=== PATIENT | male | born 1965 | race Two or more races ===

== ENCOUNTER 2016-11-11 19:13 | Emergency (ER) | payer OTHER ==
[~2016-11-11] VITALS: Ht 165.1 cm; Wt 104.3 kg
[2016-11-11 19:21] VITALS: BP 167/105
== END 2016-11-11 21:33 | disposition home or self-care (01) ==
LOC: ER 19:17
DX: M77.9 Enthesopathy, unspecified (principal); M79.641 Pain in right hand
CPT/HCPCS: 73130

== ENCOUNTER 2020-12-23 10:36 | Inpatient (IN) | payer MEDICAID, OTHER ==
[~2020-12-23] VITALS: Ht 157.5 cm; Wt 69.0 kg
[2020-12-23] MEDS ORDERED: ONDANSETRON HCL 4 MG/2 ML VIAL IV ONE (11:30)
[2020-12-23] MEDS ORDERED: HYDROmorphone HCL 2 MG/ML VL IV ONE (11:30)
[2020-12-23 11:56] LABS: Basophils # (auto) 0 10 ^3/uL (0-0.2); Basophils % (auto) 0.2 % (0.0-2.0); Eosinophils # (auto) 0.3 10 ^3/uL (0-0.8); Eosinophils % (auto) 3.2 % (0.0-7.0); Hematocrit 43.6 % (41.0-53.0); Hemoglobin 15.1 g/dL (13.5-17.5); Lymphocytes # (auto) 0.8 10 ^3/uL (0.4-5.4); Lymphocytes % (auto) 7.8 % (10.0-50.0); Mean Corpuscular Hemoglobin 30.9 pg (28.0-32.0); Mean Corpuscular Hgb Conc. 34.5 g/dL (32.0-36.0); Mean Corpuscular Volume 89.5 fL (80.0-100.0); Monocytes # (auto) 0.5 10 ^3/uL (0-1.3); Monocytes % (auto) 4.7 % (0.0-12.0); Neutrophils # (auto) 8.1 10 ^3/uL (1.6-8.6); Neutrophils % (auto) 84.1 % (37.0-80.0); Nucleated Red Blood Cells % 0.1 %; Platelet Count (auto) 246 10^3/uL (140-450); Red Blood Cells 4.87 10^6/uL (4.5-5.90); Red Cell Distribution Width 13.8 % (11.8-14.3); White Blood Cell 9.7 10^3/uL (4.4-10.8)
[2020-12-23] MEDS ORDERED: ceFAZolin 1GM/50ML 50 ML IV ONE (12:15)
[2020-12-23 12:19] LABS: Albumin 3.8 g/dL (3.4-5.0); Calcium 8.8 mg/dL (8.5-10.1); Potassium 3.4 mmol/L (3.5-5.1)
[2020-12-23 12:24] LABS: BUN/Creatinine Ratio 14.3; Bilirubin, Total 1.1 mg/dL (0.2-1.0); Total Protein 7.8 g/dL (6.4-8.2)
[2020-12-23 12:26] LABS: Partial Thromboplastin Time 24.8 sec (23.0-31.2)
[2020-12-23 12:40] LABS: Urine WBC None Seen /hpf (0 - 3)
[2020-12-23 13:03] LABS: Urine Bacteria NONE SEEN /hpf (None Seen); Urine Blood Negative /uL (Negative); Urine Mucus FEW (None Seen); Urine Specific Gravity 1.016 (1.001-1.035)
[2020-12-23] MEDS ORDERED: ACETAMINOPHEN 500 MG TAB PO PRN (14:00)
[2020-12-23] MEDS ORDERED: MORPHINE SULF INJ 2 MG/ML SYRINGE 1ML IV PRN (14:00)
[2020-12-23] MEDS ORDERED: DOCUSATE CALCIUM 240 MG CAP PO PRN (14:00)
[2020-12-23] MEDS ORDERED: SODIUM CHLORIDE 0.9% 2,000 ML IV ONE (14:00)
[2020-12-23] MEDS ORDERED: TETANUS-DIPTH-ACEL PERTUSSIS 0.5ML SYR Tdap IM ONE (14:00)
[2020-12-23] MEDS ORDERED: NITROGLYCERIN 0.4 MG SL TAB SL PRN (14:00)
[2020-12-23] MEDS: ONDANSETRON HCL 4 MG/2 ML VIAL IV PRN (14:47)
[2020-12-23] MEDS: HYDROmorphone HCL 2 MG/ML VL IV PRN ×2 (14:47→19:08)
[2020-12-23] MEDS: POTASSIUM CHL 20MEQ/100ML 100 ML IV SCH ×2 (15:11→17:44)
[2020-12-23] MEDS: SODIUM CHLORIDE 0.9% 1,000 ML IV SCH (16:10)
[2020-12-23] MEDS: ceFAZolin 1GM/50ML 50 ML IV SCH (17:53)
[2020-12-23 18:27] VITALS: BP 149/93
[2020-12-23] MEDS ORDERED: PRA1C PO (18:53)
[2020-12-23 22:00] VITALS: BP 138/93
[2020-12-24] VITALS (9 sets, daily range): BP systolic 122–168; BP diastolic 71–107
[2020-12-24] MEDS: ceFAZolin 1GM/50ML 50 ML IV SCH ×5 (00:04→23:07)
[2020-12-24] MEDS: HYDROmorphone HCL 2 MG/ML VL IV PRN ×4 (00:05→21:30)
[2020-12-24] MEDS: ONDANSETRON HCL 4 MG/2 ML VIAL IV PRN (00:30)
[2020-12-24] MEDS: SODIUM CHLORIDE 0.9% 1,000 ML IV SCH ×2 (05:28→19:01)
[2020-12-24] MEDS ORDERED: hydrALAZINE HCL 20 MG/ML VL IV ONE (06:15)
[2020-12-24] MEDS ORDERED: ceFAZolin 1GM VL ONE ×2 (08:10→09:06)
[2020-12-24] MEDS ORDERED: ROPIVACAINE 0.5% (5MG/ML) 20ML AMPULE IJ ONE (08:10)
[2020-12-24] MEDS ORDERED: NEOMYCIN-BACITRACIN-POLYM 15GM TOP OINT TOP ONE (08:10)
[2020-12-24] MEDS ORDERED: ceFAZolin 1GM/50ML 50 ML IV ONE (08:12)
[2020-12-24] MEDS ORDERED: fentaNYL CITRATE 100 MCG/2 ML VL ONE (08:14)
[2020-12-24] MEDS ORDERED: MIDAZOLAM HCL 1MG/1ML-2 ML VIAL ONE (08:14)
[2020-12-24] MEDS ORDERED: MORPHINE SULF(PF) 0.5MG/ML 10ML VIAL ONE (08:14)
[2020-12-24] MEDS ORDERED: KETOROLAC TROMETH 30 MG/ML 1ML VIAL ONE (08:14)
[2020-12-24] MEDS ORDERED: GLYCOPYRROLATE 0.2 MG/ML 1ML VIAL ONE (08:14)
[2020-12-24] MEDS ORDERED: ONDANSETRON HCL 4 MG/2 ML VIAL ONE (08:14)
[2020-12-24] MEDS ORDERED: KETAMINE HCL 10 ML ONE (08:14)
[2020-12-24] MEDS ORDERED: PROPOFOL 10 MG/ML 20 ML IV ONE (08:14)
[2020-12-24 08:16] LABS: Basophils # (auto) 0 10 ^3/uL (0-0.2); Basophils % (auto) 0.1 % (0.0-2.0); Eosinophils # (auto) 1.1 10 ^3/uL (0-0.8); Hematocrit 43.3 % (41.0-53.0); Lymphocytes # (auto) 2.1 10 ^3/uL (0.4-5.4); Lymphocytes % (auto) 22.3 % (10.0-50.0); Mean Corpuscular Hemoglobin 31.5 pg (28.0-32.0); Mean Corpuscular Hgb Conc. 34.6 g/dL (32.0-36.0); Mean Corpuscular Volume 90.8 fL (80.0-100.0); Monocytes % (auto) 11.2 % (0.0-12.0); Neutrophils % (auto) 54.4 % (37.0-80.0); Platelet Count (auto) 242 10^3/uL (140-450); Red Blood Cells 4.76 10^6/uL (4.5-5.90); Red Cell Distribution Width 13.9 % (11.8-14.3); White Blood Cell 9.2 10^3/uL (4.4-10.8)
[2020-12-24 08:23] LABS: Calcium 8.4 mg/dL (8.5-10.1); Potassium 3.8 mmol/L (3.5-5.1)
[2020-12-24] MEDS ORDERED: TETRACAINE 1% INJ 2 ML VIAL IJ ONE (08:23)
[2020-12-24 08:27] LABS: Albumin 3.6 g/dL (3.4-5.0); BUN/Creatinine Ratio 15.6
[2020-12-24 08:29] LABS: Bilirubin, Total 1.1 mg/dL (0.2-1.0); Total Protein 7.7 g/dL (6.4-8.2)
[2020-12-24] MEDS: ENOXAPARIN SOD 40 MG/0.4 ML SYRINGE SC SCH (09:24)
[2020-12-24] MEDS ORDERED: ONDANSETRON HCL 4 MG/2 ML VIAL IV PRN (11:15)
[2020-12-24] MEDS: PANTOPRAZOLE 40 MG TAB PO SCH (12:50)
[2020-12-24] MEDS: HYDROcodone-ACET 5/325MG TAB PO PRN (23:08)
[2020-12-24] MEDS: LABETALOL HCL 5 MG/ML 4ML SYRINGE IV PRN (23:19)
[2020-12-25] VITALS (18 sets, daily range): BP systolic 137–163; BP diastolic 50–99
[2020-12-25] MEDS: LORazepam 0.5 MG TAB PO PRN (00:52)
[2020-12-25] MEDS: HYDROmorphone HCL 2 MG/ML VL IV PRN ×6 (01:14→23:17)
[2020-12-25] MEDS: ONDANSETRON HCL 4 MG/2 ML VIAL IV PRN (02:06)
[2020-12-25] MEDS: LABETALOL HCL 5 MG/ML 4ML SYRINGE IV PRN (03:50)
[2020-12-25] MEDS: ceFAZolin 1GM/50ML 50 ML IV SCH ×4 (06:03→23:16)
[2020-12-25 06:55] LABS: Basophils # (auto) 0 10 ^3/uL (0-0.2); Basophils % (auto) 0.2 % (0.0-2.0); Eosinophils # (auto) 0.2 10 ^3/uL (0-0.8); Hematocrit 39.2 % (41.0-53.0); Hemoglobin 13.8 g/dL (13.5-17.5); Lymphocytes % (auto) 9.7 % (10.0-50.0); Mean Corpuscular Hgb Conc. 35.2 g/dL (32.0-36.0); Monocytes # (auto) 1.3 10 ^3/uL (0-1.3); Neutrophils # (auto) 7.5 10 ^3/uL (1.6-8.6); Neutrophils % (auto) 75.1 % (37.0-80.0); Platelet Count (auto) 202 10^3/uL (140-450); Red Cell Distribution Width 13.4 % (11.8-14.3)
[2020-12-25 07:10] LABS: BUN/Creatinine Ratio 13.6; Calcium 8.7 mg/dL (8.5-10.1); Potassium 3.6 mmol/L (3.5-5.1)
[2020-12-25] MEDS: SODIUM CHLORIDE 0.9% 1,000 ML IV SCH ×2 (08:18→21:32)
[2020-12-25] MEDS: ENOXAPARIN SOD 40 MG/0.4 ML SYRINGE SC SCH (09:25)
[2020-12-25] MEDS: PANTOPRAZOLE 40 MG TAB PO SCH (10:10)
[2020-12-26] MEDS: HYDROmorphone HCL 2 MG/ML VL IV PRN ×5 (04:05→22:52)
[2020-12-26 05:00] VITALS: BP 151/93
[2020-12-26] MEDS: ceFAZolin 1GM/50ML 50 ML IV SCH ×3 (05:56→17:13)
[2020-12-26 07:06] LABS: Basophils # (auto) 0 10 ^3/uL (0-0.2); Basophils % (auto) 0.2 % (0.0-2.0); Eosinophils # (auto) 0.2 10 ^3/uL (0-0.8); Eosinophils % (auto) 2.1 % (0.0-7.0); Hematocrit 37.5 % (41.0-53.0); Hemoglobin 13.1 g/dL (13.5-17.5); Lymphocytes # (auto) 1.4 10 ^3/uL (0.4-5.4); Lymphocytes % (auto) 15.8 % (10.0-50.0); Mean Corpuscular Hemoglobin 31.8 pg (28.0-32.0); Mean Corpuscular Hgb Conc. 34.9 g/dL (32.0-36.0); Monocytes # (auto) 1.4 10 ^3/uL (0-1.3); Monocytes % (auto) 15.6 % (0.0-12.0); Neutrophils # (auto) 5.9 10 ^3/uL (1.6-8.6); Neutrophils % (auto) 66.3 % (37.0-80.0); Nucleated Red Blood Cells % 0.1 %; Platelet Count (auto) 209 10^3/uL (140-450); Red Blood Cells 4.13 10^6/uL (4.5-5.90); Red Cell Distribution Width 13.6 % (11.8-14.3); White Blood Cell 8.9 10^3/uL (4.4-10.8)
[2020-12-26 07:26] LABS: Potassium 4.1 mmol/L (3.5-5.1)
[2020-12-26 07:29] LABS: BUN/Creatinine Ratio 12.7
[2020-12-26 08:43] VITALS: BP 146/95
[2020-12-26] MEDS: PANTOPRAZOLE 40 MG TAB PO SCH (09:01)
[2020-12-26] MEDS: ENOXAPARIN SOD 40 MG/0.4 ML SYRINGE SC SCH (09:02)
[2020-12-26] MEDS: SODIUM CHLORIDE 0.9% 1,000 ML IV SCH (09:02)
[2020-12-26] MEDS ORDERED: LACTULOSE 20Gm/30ML SOLN PO PRN (12:00)
[2020-12-26 12:49] VITALS: BP 144/82
[2020-12-26 13:50] LABS: Hepatitis B Surface Antibody Positive
[2020-12-26 15:29] LABS: Hepatitis B Surface Antigen Negative (Negative)
[2020-12-26 16:33] VITALS: BP 132/70
[2020-12-26 22:00] VITALS: BP 154/95
[2020-12-27] MEDS: SODIUM CHLORIDE 0.9% 1,000 ML IV SCH (00:13)
[2020-12-27] MEDS: ceFAZolin 1GM/50ML 50 ML IV SCH ×2 (00:13→05:40)
[2020-12-27] MEDS: HYDROcodone-ACET 5/325MG TAB PO PRN ×2 (01:34→10:20)
[2020-12-27] MEDS: LORazepam 0.5 MG TAB PO PRN (01:39)
[2020-12-27 05:00] VITALS: BP 141/89
[2020-12-27 06:27] LABS: Basophils # (auto) 0 10 ^3/uL (0-0.2); Basophils % (auto) 0.2 % (0.0-2.0); Eosinophils # (auto) 0.3 10 ^3/uL (0-0.8); Eosinophils % (auto) 3.9 % (0.0-7.0); Hematocrit 36.6 % (41.0-53.0); Hemoglobin 12.8 g/dL (13.5-17.5); Lymphocytes # (auto) 1.4 10 ^3/uL (0.4-5.4); Lymphocytes % (auto) 16.9 % (10.0-50.0); Mean Corpuscular Hemoglobin 31.8 pg (28.0-32.0); Mean Corpuscular Hgb Conc. 34.8 g/dL (32.0-36.0); Mean Corpuscular Volume 91.2 fL (80.0-100.0); Monocytes # (auto) 1.3 10 ^3/uL (0-1.3); Monocytes % (auto) 15.7 % (0.0-12.0); Neutrophils # (auto) 5.4 10 ^3/uL (1.6-8.6); Neutrophils % (auto) 63.3 % (37.0-80.0); Platelet Count (auto) 217 10^3/uL (140-450); Red Blood Cells 4.01 10^6/uL (4.5-5.90); Red Cell Distribution Width 13.6 % (11.8-14.3); White Blood Cell 8.5 10^3/uL (4.4-10.8)
[2020-12-27 06:43] LABS: BUN/Creatinine Ratio 19.4; Calcium 8.6 mg/dL (8.5-10.1); Potassium 3.9 mmol/L (3.5-5.1)
[2020-12-27 09:00] VITALS: BP 137/76
[2020-12-27] MEDS: HYDROmorphone HCL 2 MG/ML VL IV PRN (09:01)
[2020-12-27] MEDS ORDERED: HYDROmorphone HCL 2 MG/ML VL IV PRN (12:15)
[2020-12-27] MEDS: ENOXAPARIN SOD 40 MG/0.4 ML SYRINGE SC SCH (12:19)
[2020-12-27] MEDS: KETOROLAC TROMETH 30 MG/ML 1ML VIAL IV PRN ×2 (12:19→22:21)
[2020-12-27] MEDS: PANTOPRAZOLE 40 MG TAB PO SCH (12:19)
[2020-12-27 17:00] VITALS: BP 122/76
[2020-12-27] MEDS ORDERED: TAMSULOSIN HYDROCHLORIDE 0.4 MG CAP PO SCH (18:00)
[2020-12-27 22:00] VITALS: BP 108/65
[2020-12-27] MEDS: ENOXAPARIN SOD 80 MG/0.8ML SYRINGE SC SCH (22:20)
[2020-12-27] MEDS: CEPHALEXIN 250 MG CAP PO SCH (22:20)
[2020-12-28 05:00] VITALS: BP 113/78
[2020-12-28] MEDS: KETOROLAC TROMETH 30 MG/ML 1ML VIAL IV PRN (06:01)
[2020-12-28 09:08] VITALS: BP 121/69
[2020-12-28] MEDS: PANTOPRAZOLE 40 MG TAB PO SCH (09:52)
[2020-12-28] MEDS: CEPHALEXIN 250 MG CAP PO SCH (09:52)
[2020-12-28] MEDS: ENOXAPARIN SOD 80 MG/0.8ML SYRINGE SC SCH (09:53)
[2020-12-28] MEDS: HYDROcodone-ACET 5/325MG TAB PO PRN (10:16)
[2020-12-28] MEDS ORDERED: TAM04C PO (10:50)
[2020-12-28] MEDS ORDERED: PANT40T PO (10:50)
[2020-12-28] MEDS ORDERED: CEPH-322 PO (10:50)
[2020-12-28] MEDS ORDERED: IBUP400T22 PO (10:50)
[2020-12-28 13:00] VITALS: BP 135/65
[2020-12-28 13:16] VITALS: BP 147/50
== END 2020-12-28 15:47 | disposition home or self-care (01) | DRG 314 ==
LOC: EDBD 10:36 → ER 10:36 → OVERFLOW 10:37 → EAST 16:24 → TELE-EAST 12-25 04:07 → EAST 12-25 22:10
PROVIDERS: ADMIT Family Medicine; ATTEND Internal Medicine
PROC: 2W3MX1Z Immobilization of Left Lower Extremity using Splint (ICD-10-PCS; 2020-12-24)
PROC: 0QSM04Z Reposition Left Tarsal with Internal Fixation Device, Open Approach (ICD-10-PCS; principal; 2020-12-24 08:30)
DX: S92.11 Fracture of neck of talus (principal); E87.1 Hypo-osmolality and hyponatremia; S82.892B Other fracture of left lower leg, initial encounter for open fracture type I or II; E87.6 Hypokalemia; I10 Essential (primary) hypertension; N40.1 Benign prostatic hyperplasia with lower urinary tract symptoms; R30.0 Dysuria; S93.05XA Dislocation of left ankle joint, initial encounter; W18.42XA Slipping, tripping and stumbling without falling due to stepping into hole or opening, initial encounter; Z20.822 Contact with and (suspected) exposure to COVID-19; Y93.01 Activity, walking, marching and hiking; Y92.89 Other specified places as the place of occurrence of the external cause; R39.16 Straining to void
CPT/HCPCS: 27786; 36415; 71045; 73600; 73610; 73630; 80048; 80053; 81001; 84443; 85025; 85610; 85730; 86701; 86703; 86706; 86803; 86850; 86900; 86901; 87086; 87340; 87426; 90715; 93005; 96365; 96375; 97163; G0378; J0690; J1885; J2250; J2405; J2704; J3480; J3490

== ENCOUNTER 2021-06-06 10:35 | Emergency (ER) | payer MEDICAID, OTHER ==
[~2021-06-06] VITALS: Ht 157.5 cm; Wt 61.2 kg
[~2021-06-06 10:35] MED LIST: CEPH-322 PO; IBUP400T22 PO; PANT40T PO; PRA1C PO; TAM04C PO
[2021-06-06 11:12] VITALS: BP 146/91
== END 2021-06-06 12:02 | disposition home or self-care (01) ==
LOC: ER 10:35
DX: B02.9 Zoster without complications (principal)

== ENCOUNTER 2021-06-16 16:06 | Emergency (ER) | payer SELFPAY ==
[~2021-06-16] VITALS: Ht 157.5 cm; Wt 59.0 kg
[2021-06-16 16:43] VITALS: BP 127/83
== END 2021-06-16 17:28 | disposition home or self-care (01) ==
LOC: ER 16:10
DX: B02.9 Zoster without complications (principal)

== ENCOUNTER 2022-07-04 13:38 | Emergency (ER) | payer MEDICAID ==
[~2022-07-04] VITALS: Ht 157.5 cm; Wt 65.9 kg
[2022-07-04 15:35] VITALS: BP 143/95
[2022-07-04] MEDS ORDERED: MELO7.5T9 PO (16:37)
== END 2022-07-04 16:57 | disposition home or self-care (01) ==
LOC: ER 13:38
DX: G89.29 Other chronic pain (principal); M25.572 Pain in left ankle and joints of left foot; M19.072 Primary osteoarthritis, left ankle and foot; M77.32 Calcaneal spur, left foot; Z79.1 Long term (current) use of non-steroidal anti-inflammatories (NSAID); Z79.899 Other long term (current) drug therapy
CPT/HCPCS: 73610

== ENCOUNTER 2024-02-24 20:59 | Emergency (ER) | payer MEDICAID ==
[~2024-02-24] VITALS: Ht 157.5 cm; Wt 155.0 kg
[2024-02-24 20:59] VITALS: BP 142/94; PULSE 63; RESP 14; TEMP 98.6; O2SAT 97
[~2024-02-24 20:59] MED LIST changes: -CEPH-322 PO; +CEPH250C PO; +IBUP-1453 PO; -IBUP400T22 PO; +MELO7.5T9 PO; -TAM04C PO; +TAMS-35 PO
[2024-02-25] MEDS: TETRACAINE HCL 0.5% OPTH(EYE) SOLN 4ML RIGHTEYE ONE (00:55)
[2024-02-25] MEDS: FLUORESCEIN SOD OPTH TEST STRIP RIGHTEYE ONE (00:55)
[2024-02-25] MEDS ORDERED: ERY05OO OP (00:56)
== END 2024-02-25 01:03 | disposition home or self-care (01) ==
LOC: ER 20:59
DX: H10.89 Other conjunctivitis (principal); I10 Essential (primary) hypertension; Z88.6 Allergy status to analgesic agent